=== PATIENT | female | born 1990 | race Caucasian/White ===

== ENCOUNTER 2016-12-23 07:21 | Emergency (ER) | payer SELFPAY ==
[~2016-12-23] VITALS: Ht 160 cm; Wt 61.2 kg
[2016-12-23 07:49] VITALS: BP 122/65
--- NOTE | 2016-12-23 08:11 | PHYS DOC ---
Past Medical History Past Medical History: No Pertinent History Past Surgical History: No Surgical History Alcohol Use: None Drug Use: None Adult General Chief Complaint Chief Complaint: BREAST PROBLEM HPI HPI Patient is a 26 year old female present to the emergency department with a history of finding a lump on her left breast 2 days ago. Patient states she does self breast exams twice a month. She states her last menstrual cycle was 2 weeks ago. She denies family history of breast cancer. She states she has not had a mammogram. She denies having a primary care provider. Review of Systems Review of Systems Constitutional: Denies fever or chills [] Eyes: Denies change in visual acuity, redness, or eye pain [] HENT: Denies nasal congestion or sore throat [] Respiratory: Denies cough or shortness of breath [] Cardiovascular: No additional information not addressed in HPI [] GI: Denies abdominal pain, nausea, vomiting, bloody stools or diarrhea [] : Denies dysuria or hematuria [] Musculoskeletal: Denies back pain or joint pain [] Integument: Denies rash or skin lesions. C/o lump in the left breast Neurologic: Denies headache, focal weakness or sensory changes [] Endocrine: Denies polyuria or polydipsia [] Allergies Allergies Allergies Coded Allergies Type Severity Reaction Last Updated Verified No Known Drug Allergies 12/23/16 No Physical Exam Physical Exam Constitutional: Well developed, well nourished, no acute distress, non-toxic appearance. [] HENT: Normocephalic, atraumatic, bilateral external ears normal, oropharynx moist, no oral exudates, nose normal. [] Eyes: PERRLA, EOMI, conjunctiva normal, no discharge. [] Neck: Normal range of motion, no tenderness, supple, no stridor. [] Cardiovascular:Heart rate regular rhythm, no murmur [] Lungs & Thorax: Bilateral breath sounds clear to auscultation [] Skin: Warm, dry, no erythema, no rash. [] Back: No tenderness Extremities: No tenderness, no cyanosis, no clubbing, ROM intact, no edema. [] Neurologic: Alert and oriented X 3, normal motor function, normal sensory function, no focal deficits noted. [] Psychologic: Affect normal, judgement normal, mood normal. [] Breast Exam: right breast normal, left breast with swelling and lump noted at the 12 O'clock area Current Patient Data Vital Signs Vital Signs Date Time Temp Pulse Resp B/P (MAP) Pulse Ox O2 Delivery O2 Flow Rate FiO2 12/23/16 07:49 98.6 81 14 122/65 (84) 97 Room Air 98.6 EKG EKG [] Radiology/Procedures Radiology/Procedures [][facility] [address] [place] [address] IMAGING REPORT Signed PATIENT: JOIE STORY ACCOUNT: [id number] : 1990 LOCATION: ER AGE: 26 SEX: F EXAM STATUS: REG ER ORD. PHYSICIAN: SUZI ANDRADE APRN REASON: tenderness with lump at the 12'o clock out breast area PROCEDURE: BREAST LEFT Indication lump right breast. The patient reports feeling a lump last night at approximately the 12:00 position of the left breast. The patient reports that this is less apparent now. Targeted ultrasound of the left breast, where the patient reports a lump, was performed. No mass or abnormality is seen in the area examined. IMPRESSION: Normal targeted ultrasound left breast. If there is a discrete, palpable, mass in the breast biopsy may be warranted despite unremarkable imaging DICTATED and SIGNED BY: MJ BELL MD DATE: 12/23/16825 CC: SUZI ANDRADE APRN; NO PCP ~ Course & Med Decision Making Course & Med Decision Making Pertinent Labs and Imaging studies reviewed. (See chart for details) Ultrasound negative for abnormalities. Patient will be discharged home in stable condition with recommendations to followup with primary care provider as needed. Signs and symptoms to return to the emergency department has been provided. Patient agrees with discharge instructions, treatment regimens and followup recommendations. [] Dragon Disclaimer Dragon Disclaimer This electronic medical record was generated, in whole or in part, using a voice recognition dictation system. Departure Departure Impression: Primary Impression: Normal breast exam Disposition: HOME, SELF-CARE Condition: STABLE Referrals: NO PCP (PCP) Patient Instructions: Breast Self-Exam, [id number], Breast Tenderness Additional Instructions: You have been evaluated for breast issues Ultrasound was negative for abnormalities Activity as tolerated Continue with self breast exams on a monthly basis Followup with primary care provider in 3-5 days Return to emergency department as needed for signs and symptoms that become worse. SUZI ANDRADE APRN Dec 23, 2016 08:11
--- NOTE | 2016-12-23 08:30 | RAD ---
Indication lump right breast. The patient reports feeling a lump last night at approximately the 12:00 position of the left breast. The patient reports that this is less apparent now. Targeted ultrasound of the left breast, where the patient reports a lump, was performed. No mass or abnormality is seen in the area examined. IMPRESSION: Normal targeted ultrasound left breast. If there is a discrete, palpable, mass in the breast biopsy may be warranted despite unremarkable imaging
== END 2016-12-23 08:46 | disposition home or self-care (01) ==
LOC: ER 07:21
DX: Z04.8 Encounter for examination and observation for other specified reasons (principal); N63 Unspecified lump in breast
CPT/HCPCS: 76641; 99284-25

== ENCOUNTER 2017-05-09 11:38 | Emergency (ER) | payer SELFPAY ==
[~2017-05-09] VITALS: Ht 165.1 cm; Wt 61.2 kg
[2017-05-09 12:06] VITALS: BP 137/62
--- NOTE | 2017-05-09 13:13 | PHYS DOC ---
Past Medical History Past Medical History: No Pertinent History Past Surgical History: No Surgical History Alcohol Use: None Drug Use: None Adult General Chief Complaint Chief Complaint: BREAST PROBLEM HPI HPI Patient is a 26 year old female presents with the breast mass. Patient states she's had a mass on her left breast for 6 months and one on her right breast for 6 months. She states she does not have money to do a mammogram or follow-up with a primary care doctor because she has no medical insurance. Patient denies any drainage from the areas. Denies any chance she is . Review of Systems Review of Systems Constitutional: Denies fever or chills [] Eyes: Denies change in visual acuity, redness, or eye pain [] HENT: Denies nasal congestion or sore throat [] Respiratory: Denies cough or shortness of breath [] Cardiovascular: No additional information not addressed in HPI [] GI: Denies abdominal pain, nausea, vomiting, bloody stools or diarrhea [] : Denies dysuria or hematuria [] Musculoskeletal: Denies back pain or joint pain [] Integument: bilateral breast masses Neurologic: Denies headache, focal weakness or sensory changes [] Endocrine: Denies polyuria or polydipsia [] Allergies Allergies Allergies Coded Allergies Type Severity Reaction Last Updated Verified No Known Drug Allergies 12/23/16 No Physical Exam Physical Exam Constitutional: Well developed, well nourished, no acute distress, non-toxic appearance. [] HENT: Normocephalic, atraumatic, bilateral external ears normal, oropharynx moist, no oral exudates, nose normal. [] Eyes: PERRLA, EOMI, conjunctiva normal, no discharge. [] Neck: Normal range of motion, no tenderness, supple, no stridor. [] Cardiovascular:Heart rate regular rhythm, no murmur [] Lungs & Thorax: Bilateral breath sounds clear to auscultation [] Abdomen: Bowel sounds normal, soft, no tenderness, no masses, no pulsatile masses. [] Skin: Warm, dry, no erythema, no rash. left breast with a palpable mass at 1300 position. Right breast with a palpable mass 1300. No redness to the areas. No nipple dimpling. No drainage to the area. Back: No tenderness, no CVA tenderness. [] Extremities: No tenderness, no cyanosis, no clubbing, ROM intact, no edema. [] Neurologic: Alert and oriented X 3, normal motor function, normal sensory function, no focal deficits noted. [] Psychologic: Affect normal, judgement normal, mood normal. [] Current Patient Data Vital Signs Vital Signs Date Time Temp Pulse Resp B/P (MAP) Pulse Ox O2 Delivery O2 Flow Rate FiO2 05/09/17 12:06 98.1 65 16 98 Room Air 98.1 EKG EKG [] Radiology/Procedures Radiology/Procedures [] Course & Med Decision Making Course & Med Decision Making Pertinent Labs and Imaging studies reviewed. (See chart for details) Patient has bilateral breast masses for the last 6 months. I recommended she follows up with an DOCUMENTATION CONSULTANT. She states she has no medical insurance or any means of following up with a PCP. I also recommended a mammogram. She states she has no money for the mammogram. I provided her a local clinic list for follow-up. Dragon Disclaimer Dragon Disclaimer This electronic medical record was generated, in whole or in part, using a voice recognition dictation system. Departure Departure Impression: Primary Impression: Mass of right breast Additional Impression: Left breast mass Disposition: HOME, SELF-CARE Condition: STABLE Referrals: NO PCP (PCP) Problem Qualifiers SHEREE PHILIPPE APRN May 09, 2017 13:13
== END 2017-05-09 13:15 | disposition home or self-care (01) ==
LOC: ER 11:38
DX: N63.20 Unspecified lump in the left breast, unspecified quadrant (principal); N63.10 Unspecified lump in the right breast, unspecified quadrant
CPT/HCPCS: 99281

== ENCOUNTER 2017-10-18 12:53 | Emergency (ER) | payer SELFPAY | END 2017-10-18 13:25 | disposition left against medical advice (07) | LOC: ER 13:25 | DX: J02.9 Acute pharyngitis, unspecified (principal); Z53.21 Procedure and treatment not carried out due to patient leaving prior to being seen by health care provider ==

== ENCOUNTER 2017-12-13 19:20 | Emergency (ER) | payer SELFPAY | END 2017-12-13 19:45 | disposition left against medical advice (07) | LOC: ER 19:45 | DX: S30.861A Insect bite (nonvenomous) of abdominal wall, initial encounter (principal); Z53.21 Procedure and treatment not carried out due to patient leaving prior to being seen by health care provider; W57.XXXA Bitten or stung by nonvenomous insect and other nonvenomous arthropods, initial encounter; Y93.89 Activity, other specified; Y99.8 Other external cause status; Y92.89 Other specified places as the place of occurrence of the external cause ==

== ENCOUNTER 2021-06-18 16:21 | Emergency (ER) | payer SELFPAY ==
[~2021-06-18] VITALS: Ht 165.1 cm; Wt 62.0 kg
[2021-06-18 16:30] VITALS: BP 129/73
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
== END 2021-06-18 17:04 | disposition home or self-care (01) ==
LOC: ER 16:21
DX: J34.89 Other specified disorders of nose and nasal sinuses (principal); F17.200 Nicotine dependence, unspecified, uncomplicated
CPT/HCPCS: 99281